=== PATIENT | female | born 1975 ===

== ENCOUNTER 2017-07-24 21:05 | Emergency (ER) | payer MEDICAID ==
[2017-07-24 21:16] VITALS: BP 147/92; PULSE 97; RESP 19; TEMP 98.5; O2SAT 100
--- NOTE | 2017-07-24 22:38 | ED PDOC ---
HPI: Altered Mental Status Time Seen by Provider: 07/24/17 21:25 Chief Complaint (Nursing): Chest Pain Chief Complaint (Provider): crisis evaluation History Per: Patient History/Exam Limitations: None Onset/Duration Of Symptoms: Days (x1) Current Symptoms Are (Timing): Still Present Additional Complaint(s): 42 year old female with previous medical history of hypertension, who presents to the emergency department for a crisis evaluation after finding out today that her father had in [place]. Family reported onset of crying, shaking and unresponsiveness. PMD: none provided Past Medical History Reviewed: Historical Data, Nursing Documentation, Vital Signs Vital Signs: Last Vital Signs Temp 98.5 F 07/24/17 21:13 Pulse 97 H 07/24/17 21:13 Resp 19 07/24/17 21:13 BP 147/92 H 07/24/17 21:13 Pulse Ox 100 07/24/17 21:13 - Medical History PMH: HTN - Surgical History Surgical History: Appendectomy - Family History Family History: States: Unknown Family Hx - Social History Current smoker - smoking cessation education provided: No Alcohol: None Drugs: Denies - Allergies Allergies/Adverse Reactions: Allergies Allergy/AdvReac Type Severity Reaction Status Date / Time No Known Allergies Allergy Verified 07/24/17 21:16 Review of Systems ROS Statement: Except As Marked, All Systems Reviewed And Found Negative Neurological: Positive for: Numbness (hands and feet) Psych: Positive for: Anxiety, Other (crying; unresponsive) Physical Exam - Reviewed Nursing Documentation Reviewed: Yes Vital Signs Reviewed: Yes - Physical Exam Appears: Positive for: Non-toxic, No Acute Distress Head Exam: Positive for: ATRAUMATIC, NORMAL INSPECTION, NORMOCEPHALIC Skin: Positive for: Normal Color Eye Exam: Positive for: Normal appearance Neck: Positive for: Normal Cardiovascular/Chest: Positive for: Regular Rate, Rhythm, Chest Non Tender Respiratory: Positive for: Normal Breath Sounds. Negative for: Wheezing, Respiratory Distress Gastrointestinal/Abdominal: Positive for: Normal Exam, Soft. Negative for: Tenderness Neurologic/Psych: Positive for: Alert (speaking to provider in full sentences), Mood/Affect (tearful; anxious; tremulous) - ECG O2 Sat by Pulse Oximetry: 100 (RA) Pulse Ox Interpretation: Normal Medical Decision Making Medical Decision Making: Initial Impression: Crisis evaluation Initial Plan: * EKG * Crisis evaluation * Urine * Ativan 1mg PO Time: 11:35 Clinical Impression: Acute grief reaction in anxiety * Patient evaluated by crisis. Patient is stable and will be discharged. Counseling was provided and all questions were answered regarding diagnosis. There is agreement to discharge plan. Return if symptoms persist or worsen. Scribe Attestation: Documented by Evy Allen and Pavan Butts, acting as scribes for Casey Jose MD. Provider Scribe Attestation: All medical record entries made by the Scribe were at my direction and personally dictated by me. I have reviewed the chart and agree that the record accurately reflects my personal performance of the history, physical exam, medical decision making, and the department course for this patient. I have also personally directed, reviewed, and agree with the discharge instructions and disposition. Disposition - Clinical Impression Clinical Impression: Grief reaction, Anxiety - Patient ED Disposition Is Patient to be Admitted: No Counseled Patient/Family Regarding: Diagnosis - Disposition Disposition: Routine/Home Disposition Time: 23:35 Condition: STABLE Instructions: Grief and Loss (ED), Anxiety (ED) Forms: [employer] (Peruvian)
--- NOTE | 2017-07-25 21:52 | CARD ---
APPROVED REPORT EKG Measurement Heart [id number] <Conclusion> Normal sinus rhythm Biatrial enlargement Abnormal ECG
== END 2017-07-25 00:17 | disposition home or self-care (01) ==
LOC: H.ER 21:05
DX: F43.22 Adjustment disorder with anxiety (principal); I10 Essential (primary) hypertension